=== PATIENT | female | born 1980 | race Caucasian/White ===

== ENCOUNTER → 2016-11-13 | Outpatient (CLI) | payer OTHER ==
[~2016-11-13] MED LIST: CEPH-460 PO; DHA200CA PO; DICY10 PO; ERGO1CAP30 PO; FLUO20CA4 PO; LEVO.1 PO; LEVO100T5 PO; PRENCAP6 PO; PROM25TA5 PO; SYNT88TA PO
[2016-11-13 13:29] LABS: FREE T4 1.2 NG/DL (0.76-1.46)
== END ==
LOC: PLAB 10:42
PROVIDERS: ATTEND Internal Medicine Endocrinology, Diabetes & Metabolism
DX: E06.3 Autoimmune thyroiditis (principal)
CPT/HCPCS: 84439; 84443

== ENCOUNTER 2016-11-17 14:33 | Emergency (ER) | payer OTHER ==
[~2016-11-17] VITALS: Ht 154.9 cm; Wt 92.0 kg
[~2016-11-17 14:33] MED LIST changes: -CEPH-460 PO; -DICY10 PO; -ERGO1CAP30 PO; -LEVO100T5 PO
[2016-11-17 14:39] VITALS: BP 114/86; PULSE 88; RESP 16; TEMP 97.7; O2SAT 99
[2016-11-17 15:01] LABS: BLOOD, URINE LARGE (NEG); GLUCOSE,URINE NEG (NEG); KETONE, URINE NEG (NEG); NITRITE,URINE NEG (NEG)
[2016-11-17 15:07] LABS: METHOD OF COLLECTION CLEAN CATCH; URINE COLOR YELLOW (YELLW/STRAW)
[2016-11-17 15:11] LABS: COMMENT (UR) CULTURE INDICATED; CULTURE IF INDICATED CULTURE INDICATED; WBC, URINE 15-19 /hpf (0-5)
[2016-11-17] MEDS ORDERED: FLUO20CA4 PO (15:18)
[2016-11-17] MEDS ORDERED: LEVO100T5 PO (15:18)
[2016-11-17] MEDS ORDERED: CEPH-460 PO (15:56)
--- NOTE | 2016-11-17 16:04 | PD ---
HPI Chief Complaint: Complaint Time Seen by Provider: 15:19 Travel History International Travel<30 days: No Contact w/Intl Traveler<30days: No Traveled to known affect area: No History of Present Illness HPI This patient complains of dysuria and hematuria. Started this morning. Duration 8 hours. No alleviating factors. Denies fever. Denies vaginal bleeding. PFSH Past Medical History ADHD: Yes Autoimmune Disease: Yes (hoshimoto disease) Anxiety: Yes Depression: Yes Diabetes: No Diminished Hearing: No Gastrointestinal Disorders: Yes (ibs) Psychiatric: Yes (PMDD) Immunizations Current: Yes Thyroid Disease: Yes Tetanus Vaccination: < 5 Years ?: Not LMP: 11/10/2016 : 2 Para: 1 Miscarriage: 1 Ovarian Cysts: Yes Past Surgical History Abdominal Surgery: Yes (ADHESIONS) Appendectomy: Yes Gynecologic Surgery: Yes (LAPAROSCOPIC ADHESIOLYSIS) Tonsillectomy: Yes Social History Alcohol Use: No Tobacco Use: No Substance Use: No Allergies-Medications (Allergen,Severity, Reaction): Coded Allergies: Contrast Media (Verified Allergy, Severe, THROAT SWELLING, 11/17/16) Reported Meds & Prescriptions Reported Meds & Active Scripts Active Keflex (Cephalexin) 500 Mg Cap 500 Mg PO Q8H Reported Levothyroxine (Levothyroxine Sodium) 100 Mcg Tab 100 Mcg PO DAILY Fluoxetine (Fluoxetine HCl) 20 Mg Cap 20 Mg PO DAILY Review of Systems HENT: No: Headaches Cardiovascular: No: Chest Pain or Discomfort Respiratory: No: Cough Physical Exam Narrative GASTROINTESTINAL: Abdomen soft, non-tender, nondistended. Positive bowel sounds. No hepato-splenomegaly, or palpable masses. No guarding. SKIN: Inspection shows no rash or ulcers. Palpation shows no induration or nodules. Back: No CVA tenderness Data Data Last Documented VS Vital Signs Date Time Temp Pulse Resp B/P Pulse Ox O2 Delivery O2 Flow Rate FiO2 11/17/16 14:39 97.7 88 16 114/86 99 Orders Urinalysis - C+S If Indicated (11/17/16 14:43) Ed Urine Pregnancytest Poc (11/17/16 14:43) Urine Culture (11/17/16 14:45) Labs Laboratory Tests Test 11/17/16 14:45 Urine Collection Type CLEAN CATCH Urine Color YELLOW Urine Turbidity CLEAR Urine pH 6.0 Urine Specific [place] 1.023 Urine Protein NEG mg/dL Urine Glucose (UA) NEG mg/dL Urine Ketones NEG mg/dL Urine Occult Blood LARGE Urine Nitrite NEG Urine Bilirubin NEG Urine Leukocyte Esterase TRACE Urine RBC 25-49 /hpf Urine WBC 15-19 /hpf Urine Yeast (Budding) FEW Microscopic Urinalysis Comment CULTURE INDICATED MDM Medical Decision Making Medical Screen Exam Complete: Yes Emergency Medical Condition: Yes Medical Record Reviewed: Yes Differential Diagnosis UTI, pyelonephritis, cystitis Narrative Course I have reviewed the patient's electronic medical record. Urinalysis shows small monitoring of inflammatory cells and red cells It will be cultured but given her symptoms of dysuria and bloody prescribe her some antibiotics pending culture She is breast-feeding so I'm going to avoid certain antibiotics. I wrote some Keflex which should cover the most common pathogen which would be Escherichia coli Diagnosis Primary Impression: Acute cystitis with hematuria Additional Instructions: The patient was advised to follow up with their physician and return if they worsen. Med/Other Pt SpecificInfo: Prescription(s) given Scripts Cephalexin (Keflex)500 Mg [id number] Mg PO Q8H #15 CAP Ref 0 Prov:Jerry Broderick MD 11/17/16 Disposition: DISCHARGE HOME Condition: Stable Jerry Broderick MD Nov 17, 2016 16:04
[2016-11-17 16:15] VITALS: BP 118/78; PULSE 82; RESP 16; O2SAT 99
[2016-12-15] MEDS ORDERED: DICY10 PO (12:14)
[2016-12-25] MEDS ORDERED: ERGO1CAP30 PO (13:12)
== END 2016-11-17 16:20 | disposition home or self-care (01) ==
LOC: PHED 14:33
DX: N30.01 Acute cystitis with hematuria (principal); B96.89 Other specified bacterial agents as the cause of diseases classified elsewhere
CPT/HCPCS: 81001; 84703; 87086; 99283

== ENCOUNTER → 2016-12-18 | Outpatient (CLI) | payer OTHER ==
[~2016-12-18] MED LIST changes: -DHA200CA PO; +DICY10 PO; +ERGO1CAP30 PO; -LEVO.1 PO; +LEVO100T5 PO; -PRENCAP6 PO; -PROM25TA5 PO; -SYNT88TA PO
[2016-12-18 09:49] LABS: AUTOMATED NEUTROPHIL # 3.4 TH/MM3 (1.8-7.7); BASOPHIL # 0.1 TH/MM3 (0-0.2); BASOPHIL % 1.2 % (0.0-2.0); EOSINOPHIL # 0.2 TH/MM3 (0-0.4); EOSINOPHIL % 3.7 % (0.0-4.0); HEMATOCRIT 42.8 % (35.0-46.0); HEMO FLAGS DIFF FINAL; LYMPH % 31.6 % (9.0-44.0); MEAN CORPUSCULAR HEMOGLOBIN 31.3 PG (27.0-34.0); MEAN CORPUSCULAR HGB CONC 33.6 % (32.0-36.0); MONO % 8.2 % (0.0-8.0); NEUT % 55.3 % (16.0-70.0); PLATELET COUNT 284 TH/MM3 (150-450); RED CELL DISTRIBUTION WIDTH 12.9 % (11.6-17.2); WHITE BLOOD COUNT 6.2 TH/MM3 (4.0-11.0)
[2016-12-18 10:19] LABS: ALT (GPT) 23 U/L (10-53); ANION GAP 8 MEQ/L (5-15); AST (GOT) 15 U/L (15-37); BICARBONATE 25.4 MEQ/L (21.0-32.0); BLOOD UREA NITROGEN 11 MG/DL (7-18); CHLORIDE 106 MEQ/L (98-107); GLOMERULAR FILTRATION RATE 75 ML/MIN (>89); GLUCOSE,FASTING 98 MG/DL (74-99); POTASSIUM 4.1 MEQ/L (3.5-5.1); SODIUM (NA) 139 MEQ/L (136-145)
[2016-12-18 10:21] LABS: ALKALINE PHOSPHATASE 83 U/L (45-117); HDL CHOLESTEROL 57.3 MG/DL (40.0-60.0); LDL CHOLESTEROL 107 MG/DL (0-99); RHEUMATOID FACTOR TRIGGER LESS THAN 10.0 IU/ML (0.0-14.9); TOTAL BILIRUBIN ADULT 0.4 MG/DL (0.2-1.0)
[2016-12-18 11:55] LABS: HEPATITIS B SURFACE ANTIBODY GREATER THAN 150 mIU/mL
[2016-12-18 14:08] LABS: HEMOGLOBIN A1a 0.9 %; HEMOGLOBIN A1b 0.7 %; HEMOGLOBIN Ao 87.1 %; HEMOGLOBIN F 0.8 %; HEMOGLOBIN LA1C 1.8 %; HEMOGLOBIN P3 3.2 %
[2016-12-20 16:01] LABS: ANA SCREEN NEG (NEG)
== END ==
LOC: CLAB 09:16
PROVIDERS: ATTEND Family Medicine
DX: E55.9 Vitamin D deficiency, unspecified (principal); E28.2 Polycystic ovarian syndrome; F41.9 Anxiety disorder, unspecified; M25.50 Pain in unspecified joint; Z11.59 Encounter for screening for other viral diseases
CPT/HCPCS: 36415; 80053; 80061; 82306; 83036; 85025; 86038; 86200; 86317; 86430; 86787

== ENCOUNTER → 2017-02-12 | Outpatient (CLI) | payer OTHER ==
[2017-02-12 13:44] LABS: FREE T4 1.36 NG/DL (0.76-1.46)
== END ==
LOC: PLAB 10:33
PROVIDERS: ATTEND Internal Medicine Endocrinology, Diabetes & Metabolism
DX: E06.3 Autoimmune thyroiditis (principal)
CPT/HCPCS: 84439; 84443

== ENCOUNTER → 2017-02-19 | Outpatient (CLI) | payer OTHER | LOC: PLAB 11:14 | PROVIDERS: ATTEND Internal Medicine Endocrinology, Diabetes & Metabolism | DX: E06.3 Autoimmune thyroiditis (principal) | CPT/HCPCS: 84436 ==

== ENCOUNTER → 2017-04-02 | Outpatient (CLI) | payer OTHER ==
[2017-04-02 15:59] LABS: FREE T4 1.12 NG/DL (0.76-1.46)
== END ==
LOC: PLAB 13:40
PROVIDERS: ATTEND Internal Medicine Endocrinology, Diabetes & Metabolism
DX: E04.1 Nontoxic single thyroid nodule (principal)
CPT/HCPCS: 84439; 84443

== ENCOUNTER → 2017-05-29 | Outpatient (CLI) | payer OTHER ==
[~2017-05-29] MED LIST changes: +FLUO1TAB3 PO; -FLUO20CA4 PO
[2017-05-29 13:15] LABS: HEMATOCRIT 37.1 % (35.0-46.0); MEAN CELL VOLUME 91.8 FL (80.0-100.0); MEAN CORPUSCULAR HEMOGLOBIN 31.8 PG (27.0-34.0); MEAN CORPUSCULAR HGB CONC 34.7 % (32.0-36.0); PLATELET COUNT 247 TH/MM3 (150-450); RED BLOOD COUNT 4.04 MIL/MM3 (4.00-5.30); RED CELL DISTRIBUTION WIDTH 12.9 % (11.6-17.2); REVIEW FLAG FINAL; WHITE BLOOD COUNT 10.2 TH/MM3 (4.0-11.0)
[2017-05-29 13:48] LABS: RUBELLA IGG ANTIBODY 264.2 IU/mL (10.0-500.0); RUBELLA STATUS IMMUNE (IMMUNE)
[2017-06-04 16:11] LABS: FREE T4 1.16 NG/DL (0.76-1.46)
== END ==
LOC: PLAB 10:01
PROVIDERS: ATTEND Internal Medicine Endocrinology, Diabetes & Metabolism
DX: Z34.92 Encounter for supervision of normal pregnancy, unspecified, second trimester (principal)
CPT/HCPCS: 84439; 84443; 85027; 86592; 86703; 86762; 86850; 86900; 86901; 87086; 87340

== ENCOUNTER 2017-06-27 18:21 | Emergency (ER) | payer OTHER ==
[~2017-06-27] VITALS: Ht 154.9 cm; Wt 95.7 kg
[~2017-06-27 18:21] MED LIST changes: -ERGO1CAP30 PO; +VITA500012 PO
[2017-06-27 18:45] VITALS: PULSE 101
[2017-06-27 18:50] VITALS: PULSE 94
[2017-06-27 18:51] VITALS: BP 114/64; PULSE 92; RESP 18
[2017-06-27 18:52] VITALS: TEMP 98.7
--- NOTE | 2017-06-27 18:56 | PD ---
HPI Chief Complaint right buttocks pain Date Seen: Jun 27, 2017 Time Seen: 18:50 Travel History International Travel<30 Days: No Contact w/Intl Traveler<30Days: No Known Affected Area: No History of Present Illness HPI 37 yo for right buttock pain for 24 hours Weeks Gestation: 24 Para: 1 : 2 History Past Medical History Narrative Medical Hypothyroid Obstetric History Obstetric History x 1 Past Surgical History Narrative Surgical appy tonsils Family History Family History: Negative Social History Alcohol Use: No Tobacco Use: No Substance Abuse: No Allergies-Medications (Allergen,Severity, Reaction): Coded Allergies: diatrizoate meglumine (Unverified Allergy, Severe, THROAT SWELLING, ) gadobenic acid (Unverified Allergy, Severe, THROAT SWELLING, 06/27/17) gadodiamide (Unverified Allergy, Severe, THROAT SWELLING, 06/27/17) gadoteridol (Unverified Allergy, Severe, THROAT SWELLING, 06/27/17) iodixanol (Unverified Allergy, Severe, THROAT SWELLING, 06/27/17) iohexol (Unverified Allergy, Severe, THROAT SWELLING, 06/27/17) Home Meds Active Scripts Fluoxetine (Fluoxetine) 20 Mg Tab, 20 MG PO DAILY, #30 TAB 2 Refills Prov:Laura Quinones 04/24/17 Ergocalciferol (Ergocalciferol) 50,000 Unit Cap, 46507 UNITS PO Q7D for Nutritional Supplement, #30 CAP 3 Refills Prov:Lizz Alvarez MD 12/25/16 Reported Medications Dicyclomine (Bentyl) 10 Mg Cap, 10 MG PO TID Y for Bowel Management, CAP 0 Refills 12/15/16 Levothyroxine (Levothyroxine) 100 Mcg Tab, 100 MCG PO DAILY for Thyroid, #30 TAB 0 Refills 11/17/16 Review of Systems Except as stated in HPI: all other systems reviewed are Neg Physical Exam Narrative GENERAL: Well-nourished, well-developed patient. SKIN: Warm and dry. NECK: Supple, trachea midline. No JVD. CARDIOVASCULAR: Regular rate and rhythm without murmurs, gallops, or rubs. RESPIRATORY: Breath sounds equal bilaterally. No accessory muscle use. BREASTS: Bilateral exam showed no masses , no retractions, no nipple discharge. ABDOMEN/GI: Abdomen soft, non-tender, bowel sounds present, no rebound, no guarding Gravid to [-] weeks size Fundal Height: [-] GENITOURINARY: External Genitalia: intact and normal in appearance BUS glands: [-] Cervix: [-] Dilatation: deferred Effacement: [-] Station: [-] Presentation: [-] Membranes: [intact Uterine Contractions: [-] FHT's: Category: 1 Baseline: [-] Reactive: [-] Variability: [-] Decels: [-] EXTREMITIES: No cyanosis or edema. BACK: Nontender without obvious deformity. No CVA tenderness. NEUROLOGICAL: Awake and alert. Motor and sensory grossly within normal limits. Five out of 5 muscle strength in all muscle groups. Normal speech. Data Data Vital Signs Reviewed: Yes Orders Orders Vital Signs (Adult) .ON ADMISSION (06/27/17 18:48) ^ Labor Status (06/27/17 18:48) Urinalysis - C+S If Indicated (06/27/17 18:48) Diet Regular Basic (06/27/17 Dinner) MDM Interpretation(s) right buttock pain Plan DC home UA negative Diagnosis Diagnosis: Primary Impression: Buttock pain Condition: Rudy Pina MD Jun 27, 2017 18:56
[2017-06-27 19:15] LABS: BLOOD, URINE NEG (NEG); COMMENT (UR) CULT NOT INDICATED; CULTURE IF INDICATED CULT NOT INDICATED; GLUCOSE,URINE TRACE mg/dL (NEG); KETONE, URINE NEG (NEG); MUCUS URINE FEW /lpf (OCC); NITRITE,URINE NEG (NEG); SQUAMOUS EPITHELIAL CELL URINE <1 /hpf (0-5); URINE COLOR YELLOW (YELLW/STRAW)
--- NOTE | 2017-06-27 20:19 | HHI.DCPOC ---
Discharge Care Plan Diagnosis: (1) Spontaneous vaginal delivery Report Symptoms to Your Doctor -Temperature above 100.5 degrees -Redness, of incision or excessive or foul smelling drainage -Unusual pain or calf pain -Increased vaginal bleeding -Painful or difficulty urinating -Feelings of extreme sadness or anxiety after 2 weeks Goals to Promote Your Health * To prevent worsening of your condition and complications * To maintain your health at the optimal level Directions to Meet Your Goals Take your medications as prescribed Follow your dietary instruction Follow activity as directed Ensure plenty of rest for recovery Drink fluids for hydration Keep your appointments as scheduled Take your immunizations and boosters as scheduled If your symptoms worsen call your PCP, if no PCP go to Urgent Care Center or Emergency Room Smoking is Dangerous to Your Health. Avoid second hand smoke Call the 24-hour crisis hotline for domestic abuse at Rudy Haney MD Jun 27, 2017 20:19
== END 2017-06-27 20:50 | disposition home or self-care (01) ==
LOC: HOBED 18:21
DX: O26.892 Other specified pregnancy related conditions, second trimester (principal); M54.9 Dorsalgia, unspecified; O99.282 Endocrine, nutritional and metabolic diseases complicating pregnancy, second trimester; E03.9 Hypothyroidism, unspecified; Z3A.24 24 weeks gestation of pregnancy; Z79.899 Other long term (current) drug therapy; Z88.8 Allergy status to other drugs, medicaments and biological substances
CPT/HCPCS: 81001; 99283

== ENCOUNTER → 2017-07-30 | Outpatient (CLI) | payer OTHER ==
[2017-07-30 14:49] LABS: HEMATOCRIT 36.9 % (35.0-46.0); REVIEW FLAG FINAL
== END ==
LOC: CLAB 13:32
PROVIDERS: ATTEND Obstetrics & Gynecology
DX: Z34.82 Encounter for supervision of other normal pregnancy, second trimester (principal)
CPT/HCPCS: 36415; 82951; 85014; 85018; 86703

== ENCOUNTER → 2017-08-24 | Outpatient (CLI) | payer OTHER ==
[2017-08-24 12:24] LABS: FREE T4 1.14 NG/DL (0.76-1.46)
== END ==
LOC: PLAB 09:42
PROVIDERS: ATTEND Internal Medicine Endocrinology, Diabetes & Metabolism
DX: E06.3 Autoimmune thyroiditis (principal)
CPT/HCPCS: 36415; 84439; 84443

== ENCOUNTER 2017-09-11 20:39 | Emergency (ER) | payer BC, OTHER ==
[~2017-09-11 20:39] MED LIST changes: -LEVO100T5 PO; +LEVO137T2 PO
[2017-09-11] MEDS ORDERED: LACTATED RINGER'S 1,000 ML BAG IV ONE (21:30)
--- NOTE | 2017-09-11 22:03 | PD ---
HPI Chief Complaint Contractions Date Seen: Sep 11, 2017 Time Seen: 21:58 Travel History International Travel<30 Days: No Contact w/Intl Traveler<30Days: No Known Affected Area: No History of Present Illness HPI 37-year-old who is at 35 weeks 1 day comes in complaining of contractions that started at 6 PM today. They have not worsened but they have been persistent and she has a history of a 36 week vaginal delivery 2 years ago. Denies vaginal bleeding, antepartum complications, the patient's been having good movement. Patient has appointment to see her fermenter tomorrow morning Weeks Gestation: 35 Para: 1 : 3 History Past Medical History Narrative Medical Barry's with subsequent hypothyroidism Obstetric History Obstetric History Spontaneous vaginal delivery 2 years ago, 6 lbs. 10 oz. Past Surgical History Narrative Surgical Appendectomy Tonsillectomy Family History Family History: Negative Social History Alcohol Use: No Tobacco Use: No Substance Abuse: No Allergies-Medications (Allergen,Severity, Reaction): Coded Allergies: diatrizoate meglumine (Verified Allergy, Severe, THROAT SWELLING, 09/10/17) gadobenic acid (Verified Allergy, Severe, THROAT SWELLING, 09/10/17) gadodiamide (Verified Allergy, Severe, THROAT SWELLING, 09/10/17) gadoteridol (Verified Allergy, Severe, THROAT SWELLING, 09/10/17) iodixanol (Verified Allergy, Severe, THROAT SWELLING, 09/10/17) iohexol (Verified Allergy, Severe, THROAT SWELLING, 09/10/17) Home Meds Active Scripts Fluoxetine (Fluoxetine) 20 Mg Tab, 20 MG PO DAILY, #90 TAB 2 Refills Prov:Yuki Carcamo 09/10/17 Ergocalciferol (Ergocalciferol) 50,000 Unit Cap, 21908 UNITS PO Q7D for Nutritional Supplement, #30 CAP 3 Refills Prov:Lizz Alvarez MD 12/25/16 Reported Medications Levothyroxine (Levothyroxine) 137 Mcg Tab, 137 MCG PO DAILY for Thyroid, #30 TAB 0 Refills 09/10/17 Dicyclomine (Bentyl) 10 Mg Cap, 10 MG PO TID Y for Bowel Management, CAP 0 Refills 12/15/16 Discontinued Reported Medications Levothyroxine (Levothyroxine) 100 Mcg Tab, 100 MCG PO DAILY for Thyroid, #30 TAB 0 Refills 11/17/16 Discontinued Scripts Fluoxetine (Fluoxetine) 20 Mg Tab, 20 MG PO DAILY, #30 TAB 0 Refills Prov:Yuki Carcamo 08/15/17 Review of Systems Except as stated in HPI: all other systems reviewed are Neg Physical Exam Narrative GENERAL: Well-nourished, well-developed patient. SKIN: Warm and dry. HEAD: Normocephalic and atraumatic. EYES: No scleral icterus. No injection or drainage. ENT: No nasal drainage noted. Mucous membranes pink. Airway patent. NECK: Supple, trachea midline. No JVD. CARDIOVASCULAR: Regular rate and rhythm without murmurs, gallops, or rubs. RESPIRATORY: Breath sounds equal bilaterally. No accessory muscle use. ABDOMEN/GI: Abdomen soft, non-tender, bowel sounds present, no rebound, no guarding Gravid to [-39] weeks size Fundal Height: [-] GENITOURINARY: External Genitalia: intact and normal in appearance BUS glands: [Normal-] Cervix: [-] Posterior Dilatation: [-] Closed Effacement: [-] Long Station: [-] High and ballotable Presentation: [-] Vertex Membranes: [intact or ruptured] intact Uterine Contractions: [-] Irregular every 5-12 minutes FHT's: Category: [-] 1 Baseline: [-] 140 Reactive: [-] Moderate Variability: [-] Moderate Decels: [-] Absent EXTREMITIES: No cyanosis or edema. BACK: Nontender without obvious deformity. No CVA tenderness. NEUROLOGICAL: Awake and alert. Motor and sensory grossly within normal limits. Five out of 5 muscle strength in all muscle groups. Normal speech. Data Data Vital Signs Reviewed: Yes [facility] Medical Record Reviewed: Yes Plan 37-year-old who is at 35 weeks 1 day with contractions and no cervical change after observation for 2 hours and IV fluids, no pain with contractions Patient is a nurse in the NICU and recognizes the necessity to return to the hospital for any changes in her contraction pattern or worsening Follow-up with appointment tomorrow with OB provider Diagnosis Diagnosis: Primary Impression: 35 weeks gestation of Additional Impressions: Hypothyroidism uterine contractions in third trimester, antepartum Disposition: 01 DISCHARGE HOME Radha Ruby MD Sep 11, 2017 22:02
== END 2017-09-11 22:20 | disposition home or self-care (01) ==
LOC: HOBED 20:39
DX: O47.03 False labor before 37 completed weeks of gestation, third trimester (principal); O99.283 Endocrine, nutritional and metabolic diseases complicating pregnancy, third trimester; E06.3 Autoimmune thyroiditis; Z3A.35 35 weeks gestation of pregnancy
CPT/HCPCS: 96360; 99284; J7120

== ENCOUNTER 2017-09-30 07:40 | Emergency (ER) | payer BC ==
--- NOTE | 2017-09-30 08:11 | PD ---
HPI Chief Complaint Contractions Date Seen: Sep 30, 2017 Travel History International Travel<30 Days: No Contact w/Intl Traveler<30Days: No Known Affected Area: No History of Present Illness HPI 37-year-old 3 para 1 AB 1 with an NILS of October 16 who presents today for contractions. She states that these were irregular last night and more regular today prompting her visit. She denies any bleeding or leakage of fluid. History Past Medical History Narrative Medical Hypothyroid Mild depression Obstetric History Obstetric History One prior term vaginal delivery Past Surgical History Narrative Surgical Exploratory laparoscopy for primary infertility Tonsillectomy Social History Alcohol Use: No Tobacco Use: No Substance Abuse: No Allergies-Medications (Allergen,Severity, Reaction): Coded Allergies: diatrizoate meglumine (Verified Allergy, Severe, THROAT SWELLING, 09/10/17) gadobenic acid (Verified Allergy, Severe, THROAT SWELLING, 09/10/17) gadodiamide (Verified Allergy, Severe, THROAT SWELLING, 09/10/17) gadoteridol (Verified Allergy, Severe, THROAT SWELLING, 09/10/17) iodixanol (Verified Allergy, Severe, THROAT SWELLING, 09/10/17) iohexol (Verified Allergy, Severe, THROAT SWELLING, 09/10/17) Home Meds Active Scripts Fluoxetine (Fluoxetine) 20 Mg Tab, 20 MG PO DAILY, #90 TAB 2 Refills Prov:Yuki Carcamo 09/10/17 Ergocalciferol (Ergocalciferol) 50,000 Unit Cap, 85278 UNITS PO Q7D for Nutritional Supplement, #30 CAP 3 Refills Prov:Lizz Alvarez MD 12/25/16 Reported Medications Levothyroxine (Levothyroxine) 137 Mcg Tab, 137 MCG PO DAILY for Thyroid, #30 TAB 0 Refills 09/10/17 Dicyclomine (Bentyl) 10 Mg Cap, 10 MG PO TID Y for Bowel Management, CAP 0 Refills 12/15/16 Review of Systems Except as stated in HPI: all other systems reviewed are Neg Physical Exam Narrative GENERAL: Well-nourished, well-developed patient. SKIN: Warm and dry. HEAD: Normocephalic and atraumatic. EYES: No scleral icterus. No injection or drainage. ENT: No nasal drainage noted. Mucous membranes pink. Airway patent. NECK: Supple, trachea midline. No JVD. CARDIOVASCULAR: Regular rate and rhythm without murmurs, gallops, or rubs. RESPIRATORY: Breath sounds equal bilaterally. No accessory muscle use. ABDOMEN/GI: Abdomen soft, non-tender, bowel sounds present, no rebound, no guarding Gravid to [-] weeks size Fundal Height: [-] GENITOURINARY: External Genitalia: intact and normal in appearance BUS glands: [-] Cervix: [-] Dilatation: [Fingertip-] Effacement: [-50] Station: [-Ballotable] Presentation: [-] Membranes: [intact] Uterine Contractions: [Every 3-4 mild-] FHT's: Category: [1-] Baseline: [-] Reactive: [-Yes] Variability: [-] Decels: [-] EXTREMITIES: No cyanosis or edema. BACK: Nontender without obvious deformity. No CVA tenderness. NEUROLOGICAL: Awake and alert. Motor and sensory grossly within normal limits. Five out of 5 muscle strength in all muscle groups. Normal speech. MDM Medical Record Reviewed: Yes Narrative Course / MDM Assessment: 37 week 5 day gestation with contractions, possible latent labor Plan: Reevaluate cervical exam in 1 hour. Addendum: Cervical recheck demonstrated no change. She reports her contractions are less vigorous. Diagnosis Diagnosis: Primary Impression: 37 weeks gestation of Additional Impression: Irregular uterine contractions Disposition: 01 DISCHARGE HOME Condition: Good Lenny Branch MD Sep 30, 2017 08:11
== END 2017-09-30 09:41 | disposition home or self-care (01) ==
LOC: HOBED 07:40
DX: O47.1 False labor at or after 37 completed weeks of gestation (principal); O99.283 Endocrine, nutritional and metabolic diseases complicating pregnancy, third trimester; E03.9 Hypothyroidism, unspecified; O99.343 Other mental disorders complicating pregnancy, third trimester; F32.9 Major depressive disorder, single episode, unspecified; Z3A.37 37 weeks gestation of pregnancy; Z79.899 Other long term (current) drug therapy
CPT/HCPCS: 59025

== ENCOUNTER 2017-10-03 08:14 | Emergency (ER) | payer BC ==
[~2017-10-03] VITALS: Ht 154.9 cm; Wt 98.4 kg
--- NOTE | 2017-10-03 09:10 | PD ---
HPI Chief Complaint Contractions Travel History International Travel<30 Days: No Contact w/Intl Traveler<30Days: No Known Affected Area: No History of Present Illness HPI 37-year-old 011, IUP at 38.2 care complicated by asthma, Barry's thyroiditis, anxiety, depression, obesity The patient presents complaining of continued intermittent contractions since she was 34 weeks. She reports that these contractions worsened about midnight with lower back cramps that radiated around to the front. She reports that with her 36 week delivery she had PPROM and rapid labor, with ROM at 1:30 AM and delivery at 8 AM. She denies any aggravating or alleviating factors to the contractions and there are no attempted treatments. She reports she was not able to sleep well last night she reports that she was feeling contractions every 4-5 minutes however now that she has come to the OB ED they are irregular. She reports that she had 1 episode of emesis at 4 AM but has no further nausea or vomiting. She denies any leaking of fluid or vaginal bleeding. She reports good movement. She has no other concerns or complaints today. Weeks Gestation: 38 Para: 1 : 3 History Past Medical History Narrative Medical asthma, Barry's thyroiditis, anxiety, depression, obesity Obstetric History Obstetric History delivery 1 at 36 weeks SAB 1 Past Surgical History Narrative Surgical Appendectomy with lysis of its adhesions, HSG, tonsillectomy Family History Narrative Family History Familial tremors, RA, renal cancer, HTN, CAD, [place], TIA Social History Alcohol Use: No Tobacco Use: No Substance Abuse: No Allergies-Medications (Allergen,Severity, Reaction): Coded Allergies: diatrizoate meglumine (Verified Allergy, Severe, THROAT SWELLING, 09/10/17) gadobenic acid (Verified Allergy, Severe, THROAT SWELLING, 09/10/17) gadodiamide (Verified Allergy, Severe, THROAT SWELLING, 09/10/17) gadoteridol (Verified Allergy, Severe, THROAT SWELLING, 09/10/17) iodixanol (Verified Allergy, Severe, THROAT SWELLING, 09/10/17) iohexol (Verified Allergy, Severe, THROAT SWELLING, 09/10/17) Home Meds Active Scripts Fluoxetine (Fluoxetine) 20 Mg Tab, 20 MG PO DAILY, #90 TAB 2 Refills Prov:Yuki Carcamo 09/10/17 Reported Medications Levothyroxine (Levothyroxine) 137 Mcg Tab, 137 MCG PO DAILY for Thyroid, #30 TAB 0 Refills 09/10/17 Discontinued Reported Medications Dicyclomine (Bentyl) 10 Mg Cap, 10 MG PO TID Y for Bowel Management, CAP 0 Refills 12/15/16 Discontinued Scripts Ergocalciferol (Ergocalciferol) 50,000 Unit Cap, 25408 UNITS PO Q7D for Nutritional Supplement, #30 CAP 3 Refills Prov:Lizz Alvarez MD 12/25/16 Review of Systems Except as stated in HPI: all other systems reviewed are Neg Physical Exam Narrative GENERAL: Well-nourished, well-developed patient. SKIN: Warm and dry. HEAD: Normocephalic and atraumatic. EYES: No scleral icterus. No injection or drainage. ENT: No nasal drainage noted. Mucous membranes pink. Airway patent. NECK: Supple, trachea midline. No JVD. CARDIOVASCULAR: Regular rate and rhythm without murmurs, gallops, or rubs. RESPIRATORY: Breath sounds equal bilaterally. No accessory muscle use. BREASTS: Deferred ABDOMEN/GI: Abdomen soft, non-tender, bowel sounds present, no rebound, no guarding Gravid GENITOURINARY: External Genitalia: intact and normal in appearance. Physiologic discharge. No cervical or vaginal masses noted. SVE 09/20/high/posterior Uterine Contractions: Ir FHT's: heart tones in the 120s with moderate long-term viability, good accelerations, no decelerations noted. This is a category 1 heart rate tracing and reactive NST EXTREMITIES: No cyanosis or edema. BACK: Nontender without obvious deformity. NEUROLOGICAL: Awake and alert. Motor and sensory grossly within normal limits. Normal speech. Musculoskeletal: Grossly normal range of motion, gait, muscle strength Psychiatric: Grossly normal memory and affect MDM Plan Assessment/plan: 1. IUP at 38.2 2. No evidence of active labor: Signs and symptoms of labor were discussed with the patient. SVE 09/20/high. Strict labor precautions given. Strict vaginal bleeding/PROM precautions given 3. Obesity 4. Asthma with no issues today 5. Anxiety 6. Depression 7. Barry's thyroiditis 8. well-being: Reassuring testing with reactive NST and category 1 heart rate tracing. kick counts daily. FHR reassuring and appropriate for gestational age. 9. Follow-up with Dr. Haney as scheduled or sooner if needed Diagnosis Diagnosis: Primary Impression: 38 weeks gestation of Additional Impression: False labor after 37 weeks of gestation without delivery Mariela Daly MD Oct 03, 2017 09:09
== END 2017-10-03 09:24 | disposition home or self-care (01) ==
LOC: HOBED 08:14
DX: O47.1 False labor at or after 37 completed weeks of gestation (principal); O99.213 Obesity complicating pregnancy, third trimester; O99.283 Endocrine, nutritional and metabolic diseases complicating pregnancy, third trimester; E06.3 Autoimmune thyroiditis; Z3A.38 38 weeks gestation of pregnancy
CPT/HCPCS: 99283

== ENCOUNTER 2017-10-16 10:19 | Inpatient (IN) | payer BC ==
[2017-10-16] VITALS (21 sets, daily range): BP systolic 86–132; BP diastolic 56–92; PULSE 68–155; RESP 16–20; TEMP 97.9–98.2; O2SAT 97–99
[~2017-10-16 10:19] MED LIST changes: -DICY10 PO; -VITA500012 PO
[2017-10-16] MEDS ORDERED: LACTATED RINGER'S 1000 ML INJ 1,000 ML IV SCH (11:16)
[2017-10-16] MEDS ORDERED: LACTATED RINGER'S 1000 ML INJ 1,000 ML IV PRN (11:16)
[2017-10-16] MEDS ORDERED: MINERAL OIL 10 ML VIAL TOPICAL PRN (11:30)
[2017-10-16] MEDS ORDERED: SODIUM CHLORID 0.9% 500 ML INJ 500 ML IV PRN (11:30)
[2017-10-16] MEDS ORDERED: LIDOCAINE HCL 1% 50 ML VIAL I-DERMAL PRN (11:30)
[2017-10-16] MEDS ORDERED: LIDOCAINE HCL 1% 50 ML VIAL INFIL PRN (11:30)
[2017-10-16] MEDS ORDERED: OXYTOCIN 30 UNITS-500ML PREMIX 500 ML IV PRN (11:30)
[2017-10-16] MEDS ORDERED: CITRIC ACID-SODIUM CITRATE LIQ 30 ML UDC PO SCH (11:30)
[2017-10-16] MEDS ORDERED: SODIUM CHLOR 0.9% 1000 ML INJ 1,000 ML IV PRN (11:36)
[2017-10-16 12:00] LABS: AUTOMATED NEUTROPHIL # 7.5 TH/MM3 (1.8-7.7); BASOPHIL # 0.1 TH/MM3 (0-0.2); BASOPHIL % 0.7 % (0.0-2.0); EOSINOPHIL # 0.1 TH/MM3 (0-0.4); EOSINOPHIL % 1.2 % (0.0-4.0); HEMATOCRIT 41.2 % (35.0-46.0); HEMOGLOBIN 14.1 GM/DL (11.6-15.3); LYMPH % 20.5 % (9.0-44.0); LYMPHOCYTE # 2.2 TH/MM3 (1.0-4.8); MEAN CELL VOLUME 89.7 FL (80.0-100.0); MEAN CORPUSCULAR HEMOGLOBIN 30.7 PG (27.0-34.0); MEAN CORPUSCULAR HGB CONC 34.2 % (32.0-36.0); MEAN PLATELET VOLUME 9.8 FL (7.0-11.0); MONO % 8.2 % (0.0-8.0); MONOCYTE # 0.9 TH/MM3 (0-0.9); NEUT % 69.4 % (16.0-70.0); PLATELET COUNT 234 TH/MM3 (150-450); RED BLOOD COUNT 4.59 MIL/MM3 (4.00-5.30); RED CELL DISTRIBUTION WIDTH 13.9 % (11.6-17.2); WHITE BLOOD COUNT 10.8 TH/MM3 (4.0-11.0)
[2017-10-16] MEDS ORDERED: LACTATED RINGER'S 1000 ML INJ 1,000 ML IV ONE (12:00)
[2017-10-16] MEDS ORDERED: OXYTOCIN 10 UNIT/ML AMP IV ONE (12:00)
[2017-10-16] MEDS ORDERED: ONDANSETRON HCL 4 MG/2 ML VIAL IV ONE (12:00)
[2017-10-16] MEDS ORDERED: PROPOFOL 200 MG/20 ML AMP IV ONE (12:00)
[2017-10-16] MEDS ORDERED: ceFAZolin INJ 1,000 MG VIAL IV ONE (12:00)
[2017-10-16] MEDS ORDERED: LIDOCAINE 2%/EPINEPHrine PF 1:200,000 20ML SDV OTHER ONE (12:00)
[2017-10-16] MEDS ORDERED: OXYTOCIN 30 UNITS-500ML PREMIX 500 ML IV ONE ×2 (12:00→18:30)
[2017-10-16] MEDS ORDERED: KETOROLAC TROMETHAMINE 30 MG/ML (IVP) VIAL IV PUSH ONE (12:00)
[2017-10-16 12:06] LABS: BILIRUBIN, URINE NEG (NEG); BLOOD, URINE NEG (NEG); GLUCOSE,URINE NEG (NEG); KETONE, URINE NEG (NEG); NITRITE,URINE NEG (NEG); PH, URINE 6.5 (5.0-8.5); SQUAMOUS EPITHELIAL CELL URINE 4 /hpf (0-5); URINE COLOR YELLOW (YELLW/STRAW); URINE LEUKOCYTE ESTERASE NEG (NEG)
[2017-10-16] MEDS ORDERED: fentaNYL 2MCG-BUPIV 0.125% INJ 100 ML ONE (15:40)
[2017-10-16] MEDS ORDERED: LIDOCAINE HCL 1% 20 ML VIAL I-DERMAL PRN (16:45)
[2017-10-16] MEDS ORDERED: fentaNYL 2MCG-BUPIV 0.125% 100 ML EPIDURAL SCH (17:00)
[2017-10-16] MEDS ORDERED: ePHEDrine/NS 25 MG/5 ML SYRINGE IV PUSH PRN (17:00)
[2017-10-16] MEDS ORDERED: NO SYSTEM NARCOTICS PRN (17:00)
[2017-10-16] MEDS ORDERED: DO NOT ADMINISTER ANTICOAGULANTS PRN (17:00)
[2017-10-16] MEDS ORDERED: LIDOCAINE HCL 1% 20 ML VIAL INFIL PRN (17:00)
[2017-10-16] MEDS ORDERED: LIDOCAINE HCL 1.5% PF SOLN 20 ML AMP ONE (17:15)
[2017-10-16] MEDS ORDERED: EPIDURAL-DIPHENHYDRAMINE HCL 50 MG CAP PO PRN (17:30)
[2017-10-16] MEDS ORDERED: EPIDURAL-DIPHENHYDRAMINE HCL 50 MG/ML VIAL IV PUSH PRN (17:30)
[2017-10-16] MEDS ORDERED: EPIDURAL-DO NOT ADMINISTER ANTICOAGULANTS PRN (17:30)
[2017-10-16] MEDS ORDERED: EPIDURAL-NALOXONE HCL 0.4 MG/ML AMP IV PUSH PRN (17:30)
[2017-10-16] MEDS ORDERED: EPIDURAL-NO SYSTEMIC NARCOTICS PRN (17:30)
[2017-10-16] MEDS ORDERED: ACETAMINOPHEN 1000 MG/100 ML 100 ML IV ONE (17:31)
[2017-10-16] MEDS ORDERED: fentaNYL CITRATE 250 MCG/5 ML AMP ONE (17:31)
[2017-10-16] MEDS ORDERED: MORPHINE SULFATE PF 5 MG/10 ML VIAL ONE (17:31)
[2017-10-16] MEDS ORDERED: MIDAZOLAM HCL 2 MG/2 ML VIAL ONE (17:51)
--- NOTE | 2017-10-16 18:25 | PD.OB.DELI ---
Procedure Note Section Procedure Pre Op Diagnosis: (1) Arrest of descent, delivered, current hospitalization (2) Delivered by section Post Op Diagnosis: (1) Arrest of descent, delivered, current hospitalization (2) Delivered by section Performed by Rudy Haney Procedure: Primary Low Transverse Sec Indication for delivery: Other (arrest of descent) Informed consent obtained: For anesthesia, For procedure Confirmed correct: Patient, Procedure, Time-out taken Anesthesia: Epidural Monitoring during procedure: Blood pressure monitoring Urinary catheter: Inserted using sterile technique, To dependent drainage Sterile preparation: Duraprep Position: Supine with wedge to left side Operative Features Skin Incision: Pfannenstiel Uterine Incision: Low transverse w/knife / blunt ext Membranes Ruptured: Previously Presentation: Occiput anterior Delivery date: Oct 16, 2017 Delivery time: 17:47 Delivery of infant: Uneventful : Male One Minute : 9 Five Minute : 9 Weight: 8 # 15 oz Status of infant: Viable Placenta delivered: Intact Medications: Antibiotics Estimated blood loss: 700 Procedure tolerated: Well Maternal Condition: Stable Condition: Stable Rudy Haney MD Oct 16, 2017 18:25
[2017-10-16] MEDS ORDERED: IBUPROFEN 600 MG TAB PO PRN (18:30)
[2017-10-16] MEDS ORDERED: SIMETHICONE 80 MG CHEWABLE TAB PO PRN (18:30)
[2017-10-16] MEDS ORDERED: SODIUM CHLORIDE 0.9% FLUSH 10 ML FLUSH IV FLUSH PRN (18:30)
--- NOTE | 2017-10-16 18:36 | HHI.HP ---
HPI Chief Complaint induction 40 weeks Date Seen: Oct 16, 2017 Time Seen: 11:00 Travel History International Travel<30 Days: No Contact w/Intl Traveler<30Days: No Known Affected Area: No History of Present Illness HPI 37 yo comes in for pitocin induction at 40 weeks. Previous at 36 weeks and 6# 10 oz. She has EFW 8.5 # Weeks Gestation: 40 Para: 1 : 3 History Past Medical History Narrative Medical asthma, hasimotos, anxiety, depression Obstetric History Obstetric History x1 Past Surgical History Narrative Surgical appy, HSG Family History Family History: Negative Social History Alcohol Use: No Tobacco Use: No Substance Abuse: No Allergies-Medications (Allergen,Severity, Reaction): Coded Allergies: diatrizoate meglumine (Verified Allergy, Severe, THROAT SWELLING, 09/10/17) gadobenic acid (Verified Allergy, Severe, THROAT SWELLING, 09/10/17) gadodiamide (Verified Allergy, Severe, THROAT SWELLING, 09/10/17) gadoteridol (Verified Allergy, Severe, THROAT SWELLING, 09/10/17) iodixanol (Verified Allergy, Severe, THROAT SWELLING, 09/10/17) iohexol (Verified Allergy, Severe, THROAT SWELLING, 09/10/17) Home Meds Active Scripts Fluoxetine (Fluoxetine) 20 Mg Tab, 20 MG PO DAILY, #90 TAB 2 Refills Prov:Yuki Carcamo 09/10/17 Reported Medications Levothyroxine (Levothyroxine) 137 Mcg Tab, 137 MCG PO DAILY for Thyroid, #30 TAB 0 Refills 09/10/17 Review of Systems Except as stated in HPI: all other systems reviewed are Neg Physical Exam Vital Signs Date Time Temp Pulse Resp B/P (MAP) Pulse Ox O2 Delivery O2 Flow Rate FiO2 10/16/17 18:23 126/56 (79) 10/16/17 18:23 152 19 97 10/16/17 18:23 98.0 10/16/17 16:51 151 105/64 (78) 10/16/17 14:15 20 10/16/17 14:01 96 131/91 (104) 10/16/17 13:31 20 10/16/17 13:31 100 132/81 (98) 10/16/17 13:15 20 10/16/17 13:01 102 130/86 (101) 10/16/17 12:45 20 10/16/17 12:31 100 121/72 (88) Narrative GENERAL: Well-nourished, well-developed patient. SKIN: Warm and dry. HEAD: Normocephalic and atraumatic. EYES: No scleral icterus. No injection or drainage. ENT: No nasal drainage noted. Mucous membranes pink. Airway patent. NECK: Supple, trachea midline. No JVD. CARDIOVASCULAR: Regular rate and rhythm without murmurs, gallops, or rubs. RESPIRATORY: Breath sounds equal bilaterally. No accessory muscle use. BREASTS: Bilateral exam showed no masses , no retractions, no nipple discharge. ABDOMEN/GI: Abdomen soft, non-tender, bowel sounds present, no rebound, no guarding Gravid to [-] weeks size Fundal Height: [-] GENITOURINARY: External Genitalia: intact and normal in appearance BUS glands: [-] Cervix: [-] Dilatation: 1 Effacement: 70 Station: [-] Presentation: vtx Membranes: intact Uterine Contractions: irregular FHT's: Category: 1 Baseline: [-] Reactive: [-] Variability: [-] Decels: [-] EXTREMITIES: No cyanosis or edema. BACK: Nontender without obvious deformity. No CVA tenderness. NEUROLOGICAL: Awake and alert. Motor and sensory grossly within normal limits. Five out of 5 muscle strength in all muscle groups. Normal speech. Caprini VTE Risk Assessment Caprini VTE Risk Assessment: No/Low Risk (score <= 1) Caprini Risk Assessment Model Point Value = 1 Point Value = 2 Point Value = 3 Point Value = 5 Age 41-60 Minor surgery BMI > 25 kg/m2 Swollen legs Varicose veins or History of unexplained or recurrent spontaneous Oral contraceptives or hormone replacement Sepsis (< 1 month) Serious lung disease, including pneumonia (< 1 month) Abnormal pulmonary function Acute myocardial infarction Congestive heart failure (< 1 month) History of inflammatory bowel disease Medical patient at bed rest Age 61-74 Arthroscopic surgery Major open surgery (> 45 min) Laparoscopic surgery (> 45 min) Malignancy Confined to bed (> 72 hours) Immobilizing plaster cast Central venous access Age >= 75 History of VTE Family history of VTE Factor V Leiden Prothrombin [id number] Lupus anticoagulant Anticardiolipin antibodies Elevated serum homocysteine Heparin-induced thrombocytopenia Other congenital or acquired thrombophilia Stroke (< 1 month) Elective arthroplasty Hip, pelvis, or leg fracture Acute spinal cord injury (< 1 month) Prophylaxis Regimen Total Risk Factor Score Risk Level Prophylaxis Regimen 0-1 Low Early ambulation 2 Moderate Order ONE of the following: *Sequential Compression Device (SCD) *Heparin 5000 units SQ BID 3-4 Higher Order ONE of the following medications: *Heparin 5000 units SQ TID *Enoxaparin/Lovenox 40 mg SQ daily (WT < 150 kg, CrCl > 30 mL/min) *Enoxaparin/Lovenox 30 mg SQ daily (WT < 150 kg, CrCl > 10-29 mL/min) *Enoxaparin/Lovenox 30 mg SQ BID (WT < 150 kg, CrCl > 30 mL/min) AND/OR *Sequential Compression Device (SCD) 5 or more Highest Order ONE of the following medications: *Heparin 5000 units SQ TID (Preferred with Epidurals) *Enoxaparin/Lovenox 40 mg SQ daily (WT < 150 kg, CrCl > 30 mL/min) *Enoxaparin/Lovenox 30 mg SQ daily (WT < 150 kg, CrCl > 10-29 mL/min) *Enoxaparin/Lovenox 30 mg SQ BID (WT < 150 kg, CrCl > 30 mL/min) AND *Sequential Compression Device (SCD) Data Data Vital Signs Reviewed: Yes Orders Orders Admit To Inpatient (10/16/17 ) Code Status (10/16/17 11:16) Vital Signs (Adult) .Per protocol (10/16/17 11:16) Heart (10/16/17 11:16) Amnioinfusion (10/16/17 11:16) Urinary Catheter Management .ONCE (10/16/17 11:16) Lactated Ringer's 1000 Ml Inj (Lr 1000 M (10/16/17 11:16) Lactated Ringer's 1000 Ml Inj (Lr 1000 M (10/16/17 11:16) Sodium Chlorid 0.9% 500 Ml Inj (Ns 500 M (10/16/17 11:30) Sodium Chlor 0.9% 1000 Ml Inj (Ns 1000 M (10/16/17 11:36) Lidocaine 1% Inj (50 Ml) (Xylocaine 1% I (10/16/17 11:30) Citric Acid-Sodium Citrate Liq (Bicitra (10/16/17 11:30) Fentanyl Inj (Fentanyl Inj) (10/16/17 11:30) Fentanyl Inj (Fentanyl Inj) (10/16/17 11:30) Complete Blood Count With Diff (10/16/17 11:16) Hold Clot (10/16/17 11:16) Abo/Rh Blood Type (10/16/17 11:16) Urinalysis - C+S If Indicated (10/16/17 11:16) Drug Screen, Random Urine (10/16/17 11:16) Resp Oxygen Non Rebreathe Mask (10/16/17 ) ^ Epidural / Intrathecal Infus (10/16/17 11:16) Oxytocin 30 Units-500ml Premix (Pitocin (10/16/17 12:00) Lidocaine 1% Inj (50 Ml) (Xylocaine 1% I (10/16/17 11:30) Light Mineral Oil (Muri-Lube Oil) (10/16/17 11:30) Inpatient Certification (10/16/17 ) Specimen To Be Collected PRN (10/16/17 11:16) Specimen To Be Collected PRN (10/16/17 11:16) ^ Non Stress Test (10/16/17 11:17) Response To Medication .Post New Med Administration, Reaction (10/16/17 11:17) ^ Discontinue Medication (10/16/17 11:17) Oxytocin 30 Units-500ml Premix (Pitocin (10/16/17 11:30) Fentanyl 2mcg-Bupiv 0.125% Inj (Fentanyl (10/16/17 15:40) ^ Place On Chart (10/16/17 ) ^ Medication Indications (10/16/17 ) Consent (10/16/17 ) ^ No Systemic Narcotics (10/16/17 ) ^ Call Anesthesiologist (10/16/17 ) ^ Discontinue Epidural Cathete (10/16/17 ) Anticoagulant Alert (10/16/17 ) ^ Epidural Alert (10/16/17 ) Lidocaine 1% Inj (Xylocaine 1% Inj) (10/16/17 16:45) Lidocaine 1% Inj (Xylocaine 1% Inj) (10/16/17 17:00) Misc Nursing Information (10/16/17 17:00) Misc Nursing Information (10/16/17 17:00) Fentanyl Inj (Fentanyl Inj) (10/16/17 17:00) Fentanyl 2mcg-Bupiv 0.125% Inj (Fentanyl (10/16/17 17:00) Ephedrine/Ns 25 Mg/5 Ml Syr (Ephedrine/N (10/16/17 17:00) Lidocaine Pf 1.5% Inj (Xylocaine-Mpf 1.5 (10/16/17 17:15) Fentanyl Inj (Fentanyl Inj) (10/16/17 17:31) Morphine Pf Inj (Duramorph Pf 0.5 Mg/Ml (10/16/17 17:31) Acetaminophen 1000 Mg/100 Ml (Ofirmev 10 (10/16/17 17:31) Midazolam Inj (Versed Inj) (10/16/17 17:51) Vital Signs (Adult) Q4HX24,Q12H (10/16/17 18:25) Activity Bed Rest (10/16/17 18:25) ^ Discontinue (10/17/17 18:25) Remove Dressing (10/17/17 18:25) ^ Rhogam (10/16/17 18:25) Diet Liquid (10/16/17 Dinner) Lactated Ringer's 1000 Ml Inj (Lr 1000 M (10/16/17 23:25) Oxytocin 30 Units-500ml Premix (Pitocin (10/16/17 18:30) Oxytocin 30 Units-500ml Premix (Pitocin (10/17/17 04:30) Sodium Chloride 0.9% Flush (Ns Flush) (10/16/17 21:00) Sodium Chloride 0.9% Flush (Ns Flush) (10/16/17 18:30) Simethicone Chew (Mylicon Chew) (10/16/17 18:30) Ibuprofen (Motrin) (10/16/17 18:30) Ketorolac Inj (Toradol Inj) (10/16/17 18:30) Oxycodone-Acetamin 5-325 Mg (Percocet (10/16/17 18:30) Oxycodone-Acetamin 5-325 Mg (Percocet (10/16/17 18:30) Sbtwjfj-Hajud-Cceldoy Inj (M-M-R Ii Inj) (10/17/17 16:00) Kaug-Rtz-Dzpnjn (Booster) Inj (Boostrix (10/17/17 16:00) Complete Blood Count With Diff (10/17/17 06:00) Remove Urinary Catheter .ONCE (10/17/17 18:25) Group B Strep: Negative Labs Laboratory Tests Test 10/16/17 11:30 White Blood Count 10.8 Red Blood Count 4.59 Hemoglobin 14.1 Hematocrit 41.2 Mean Corpuscular Volume 89.7 Mean Corpuscular Hemoglobin 30.7 Mean Corpuscular Hemoglobin Concent 34.2 Red Cell Distribution Width 13.9 Platelet Count 234 Mean Platelet Volume 9.8 Neutrophils (%) (Auto) 69.4 Lymphocytes (%) (Auto) 20.5 Monocytes (%) (Auto) 8.2 Eosinophils (%) (Auto) 1.2 Basophils (%) (Auto) 0.7 Neutrophils # (Auto) 7.5 Lymphocytes # (Auto) 2.2 Monocytes # (Auto) 0.9 Eosinophils # (Auto) 0.1 Basophils # (Auto) 0.1 CBC Comment DIFF FINAL Differential Comment Urine Color YELLOW Urine Turbidity CLEAR Urine pH 6.5 Urine Specific [place] 1.011 Urine Protein NEG Urine Glucose (UA) NEG Urine Ketones NEG Urine Occult Blood NEG Urine Nitrite NEG Urine Bilirubin NEG Urine Urobilinogen LESS THAN 2.0 Urine Leukocyte Esterase NEG Urine RBC 1 Urine WBC LESS THAN 1 Urine Squamous Epithelial Cells 4 Microscopic Urinalysis Comment CULT NOT INDICATED Urine Opiates Screen NEG Urine Barbiturates Screen NEG Urine Amphetamines Screen NEG Urine Benzodiazepines Screen NEG Urine Cocaine Screen NEG Urine Cannabinoids Screen NEG Assessment/Plan Problem List: (1) 40 weeks gestation of ICD Codes: Z3A.40 - 40 weeks gestation of Assessment and Plan doing well Rudy Haney MD Oct 16, 2017 18:36
--- NOTE | 2017-10-16 19:48 | MP ---
cc: LITO HANEY DATE OF SURGERY 10/16/17 PROCEDURE Primary low transverse transection PREOPERATIVE DIAGNOSIS Arrest of descent POSTOPERATIVE DIAGNOSIS Arrest of descent SURGEON Dr. Ginna Haney ESTIMATED BLOOD LOSS 700 mL ANESTHESIA Epidural by Dr. Garrett COMPLICATIONS None FINDINGS Live male infant, Apgars of 9 and 9, 8 pounds 15 ounces PROCEDURE IN DETAIL After informed consent, the patient was taken to the operating room where she was placed under epidural anesthesia. The patient had been pushing for one hour with little descent at the end and the patient requested a section. I tried to convince the patient to continue pushing, but because of discomfort and anxiety, irritation, the patient requested and demanded a section. The patient was at least two pounds bigger that her previous baby and so decision was made for a section. After the patient was prepped and draped and a time-out was taken, a Pfannenstiel skin incision was carried sharply through the skin and fascia. The fascia was nicked in the midline. The incision was extended laterally using Arreola scissors. The rectus muscles was dissected off the fascia with sharp and blunt dissection. Rectus muscle in the midline. Peritoneum was entered bluntly with the finger. The incision was extended laterally using blunt traction. A low-transverse uterine incision was then made, carried sharply to uterine cavity. Clear fluid was noted. The incision was extended laterally using blunt traction. Hand was placed into the uterus and the head was all way the down to the vagina, had to be pulled back up through the uterus and was delivered using fundal pressure. Once the infant was delivered, we waited 1 minute for cord clamping and the infant was doing very well. Cord was clamped, cut and was handed to pediatrics in attendance. Cord blood was collected. Placenta was delivered manually. The uterus was exteriorized, wiped free from all remaining products of conception. The uterine incision was then closed with running locking stitch of chromic suture. Good hemostasis was achieved. Uterus was placed back in the abdomen, noted to be hemostatic. The fascia was closed with Vicryl suture. Skin was closed with subcuticular stitch. Each layer was noted to be hemostatic prior to closure. The patient tolerated the procedure well. MD MELISSA Mckoy/ /6:48 PM /7:36 PM
[2017-10-16] MEDS: LACTATED RINGER'S 1000 ML INJ 1,000 ML IV SCH (20:58)
[2017-10-16] MEDS: KETOROLAC TROMETHAMINE 60 MG/2 ML (IM) VIAL IM PRN (22:05)
[2017-10-17] MEDS: oxyCODONE/ACETAMINOPHEN 5 MG/325 MG TAB PO PRN ×5 (01:58→20:20)
[2017-10-17 03:45] VITALS: BP 110/61; PULSE 90; RESP 18; TEMP 97.8; O2SAT 97
[2017-10-17] MEDS ORDERED: OXYTOCIN 30 UNITS-500ML PREMIX 500 ML IV PRN (04:30)
[2017-10-17] MEDS: KETOROLAC TROMETHAMINE 60 MG/2 ML (IM) VIAL IM PRN (04:53)
[2017-10-17 06:00] LABS: AUTOMATED NEUTROPHIL # 9.9 TH/MM3 (1.8-7.7); BASOPHIL % 0.2 % (0.0-2.0); EOSINOPHIL % 0.3 % (0.0-4.0); HEMATOCRIT 31.7 % (35.0-46.0); HEMOGLOBIN 10.8 GM/DL (11.6-15.3); LYMPH % 19.5 % (9.0-44.0); LYMPHOCYTE # 2.8 TH/MM3 (1.0-4.8); MEAN CELL VOLUME 90.1 FL (80.0-100.0); MEAN CORPUSCULAR HEMOGLOBIN 30.7 PG (27.0-34.0); MEAN CORPUSCULAR HGB CONC 34.1 % (32.0-36.0); MEAN PLATELET VOLUME 9.6 FL (7.0-11.0); MONO % 11.3 % (0.0-8.0); MONOCYTE # 1.6 TH/MM3 (0-0.9); NEUT % 68.7 % (16.0-70.0); PLATELET COUNT 192 TH/MM3 (150-450); RED BLOOD COUNT 3.52 MIL/MM3 (4.00-5.30); RED CELL DISTRIBUTION WIDTH 13.6 % (11.6-17.2); WHITE BLOOD COUNT 14.4 TH/MM3 (4.0-11.0)
[2017-10-17 08:00] VITALS: BP 121/66; PULSE 95; RESP 18; TEMP 98.4
--- NOTE | 2017-10-17 09:18 | HHI.OB ---
Subjective Post Day: 1 Remarks doing well Objective Vitals/I&O Vital Signs Date Time Temp Pulse Resp B/P (MAP) Pulse Ox O2 Delivery O2 Flow Rate FiO2 10/17/17 03:45 97.8 90 18 110/61 (77) 97 10/16/17 23:40 97.9 68 18 126/79 (95) 99 10/16/17 21:29 107 126/72 (90) 10/16/17 21:29 98.2 18 97 10/16/17 20:22 18 10/16/17 19:25 118 18 115/60 (78) 10/16/17 19:10 112 10/16/17 19:10 119/58 (78) 10/16/17 19:10 18 10/16/17 18:55 122/79 (93) 10/16/17 18:55 99 10/16/17 18:55 98 19 10/16/17 18:40 131/87 (102) 10/16/17 18:40 78 16 99 10/16/17 18:23 126/56 (79) 10/16/17 18:23 152 19 97 10/16/17 18:23 98.0 10/16/17 17:25 155 130/78 (95) 10/16/17 17:22 120 86/64 (71) 10/16/17 17:11 154 121/62 (81) 10/16/17 17:05 148 124/81 (95) 10/16/17 17:01 155 107/67 (80) 10/16/17 16:55 123 113/92 (99) 10/16/17 16:51 151 105/64 (78) 10/16/17 14:15 20 10/16/17 14:01 96 131/91 (104) 10/16/17 13:31 20 10/16/17 13:31 100 132/81 (98) 10/16/17 13:15 20 10/16/17 13:01 102 130/86 (101) 10/16/17 12:45 20 10/16/17 12:31 100 121/72 (88) Intake & Output 10/17/17 10/17/17 06:59 18:59 Intake Total 1495 ml Balance 1495 ml Intake IV Total 1495 ml Objective Remarks GENERAL: Well-nourished, well-developed patient. CARDIOVASCULAR: Regular rate and rhythm without murmurs, gallops, or rubs. RESPIRATORY: Breath sounds equal bilaterally. No accessory muscle use. ABDOMEN/GI: Abdomen soft, non-tender. Fundus: Firm, non-tender at umbilicus. GENITOURINARY: Light to moderate bleeding. EXTREMITIES: No cyanosis or edema, non-tender, without signs of DVT. Medications and IVs Current Medications Medications (Trade) Dose Ordered Sig/Huma Route Start Time Stop Time Status Last Admin Miscellaneous Information No systemic narcotics to be given except... UNSCH PRN .XX 10/16/17 17:00 10/17/17 16:59 Lactated Ringer's 1,000 ml @ 100 mls/hr Q10H IV 10/16/17 23:25 10/17/17 19:24 10/16/17 20:58 Oxytocin 500 ml @ 100 mls/hr UNSCH X1 PRN IV 10/17/17 04:30 10/18/17 04:29 (NS Flush) 2 ml BID IV FLUSH 10/16/17 21:00 (NS Flush) 2 ml UNSCH PRN IV FLUSH 10/16/17 18:30 (Mylicon Chew) 80 mg QID PRN PO 10/16/17 18:30 (Toradol Inj) 30 mg Q6H PRN IM 10/16/17 18:30 10/17/17 18:29 10/17/17 04:53 (Percocet 5-325 Mg) 1 tab Q4H PRN PO 10/16/17 18:30 (Percocet 5-325 Mg) 2 tab Q4H PRN PO 10/16/17 18:30 10/17/17 06:35 (M-M-R Ii Inj) 0.5 ml ONCE ONCE SQ 10/17/17 16:00 10/17/17 16:01 (Boostrix Inj) 0.5 ml ONCE ONCE IM 10/17/17 16:00 10/17/17 16:01 (Motrin) 600 mg Q6H PRN PO 10/17/17 18:30 Miscellaneous Information NO SYSTEMIC NARCOTICS TO BE GIVEN FO... UNSCH PRN .XX 10/16/17 17:30 10/17/17 17:29 (Narcan Inj) 0.4 mg UNSCH PRN IV PUSH 10/16/17 17:30 10/17/17 17:29 (Benadryl Inj) 25 mg Q6H PRN IV PUSH 10/16/17 17:30 10/17/17 17:29 10/17/17 06:39 (Benadryl) 50 mg Q6H PRN PO 10/16/17 17:30 10/17/17 17:29 Miscellaneous Information ALL NURSING DEPARTMENTS UNSCH PRN .XX 10/16/17 17:30 10/17/17 17:29 Assessment/Plan Problem List: (1) 40 weeks gestation of ICD Codes: Z3A.40 - 40 weeks gestation of Assessment and Plan doing well, post CS ambulate today Rudy Haney MD Oct 17, 2017 09:18
[2017-10-17] MEDS: IBUPROFEN 600 MG TAB PO PRN ×2 (12:14→18:51)
[2017-10-17] MEDS: LACTATED RINGER'S 1000 ML INJ 1,000 ML IV SCH (13:11)
[2017-10-17] MEDS ORDERED: DIPHTH/TETANUS/ACEL PERTUSSIS (BOOSTER) 0.5 ML VIAL/PFS IM ONE (16:00)
[2017-10-17] MEDS ORDERED: MEASLES, MUMPS, RUBELLA VACCINE 0.5 ML VIAL SQ ONE (16:00)
[2017-10-17] MEDS: SODIUM CHLORIDE 0.9% FLUSH 10 ML FLUSH IV FLUSH SCH ×2 (16:21→19:22)
[2017-10-17 20:00] VITALS: BP 133/74; PULSE 95; RESP 18; TEMP 97.9
[2017-10-18] MEDS: diphenhydrAMINE HCL 50 MG CAP PO PRN ×3 (00:32→22:37)
[2017-10-18] MEDS: IBUPROFEN 600 MG TAB PO PRN ×4 (00:32→22:37)
[2017-10-18] MEDS: oxyCODONE/ACETAMINOPHEN 5 MG/325 MG TAB PO PRN ×5 (00:32→20:12)
[2017-10-18 08:00] VITALS: BP 115/75; PULSE 106; RESP 18; TEMP 98
[2017-10-18] MEDS: SODIUM CHLORIDE 0.9% FLUSH 10 ML FLUSH IV FLUSH SCH ×2 (08:07→21:03)
--- NOTE | 2017-10-18 08:47 | HHI.OB ---
Subjective Post Day: 2 Remarks doing well Objective Vitals/I&O Vital Signs Date Time Temp Pulse Resp B/P (MAP) Pulse Ox O2 Delivery O2 Flow Rate FiO2 10/17/17 20:00 97.9 95 18 10/17/17 20:00 133/74 (93) Objective Remarks GENERAL: Well-nourished, well-developed patient. ABDOMEN/GI: Abdomen soft, non-tender. Fundus: Firm, non-tender at umbilicus. GENITOURINARY: Light to moderate bleeding. EXTREMITIES: No cyanosis or edema, non-tender, without signs of DVT. Medications and IVs Current Medications Medications (Trade) Dose Ordered Sig/Huma Route Start Time Stop Time Status Last Admin (NS Flush) 2 ml BID IV FLUSH 10/16/17 21:00 (NS Flush) 2 ml UNSCH PRN IV FLUSH 10/16/17 18:30 (Mylicon Chew) 80 mg QID PRN PO 10/16/17 18:30 (Percocet 5-325 Mg) 1 tab Q4H PRN PO 10/16/17 18:30 10/17/17 12:14 (Percocet 5-325 Mg) 2 tab Q4H PRN PO 10/16/17 18:30 10/18/17 04:20 (Motrin) 600 mg Q6H PRN PO 10/17/17 11:45 10/18/17 00:32 (Benadryl) 50 mg Q6H PRN PO 10/17/17 23:00 10/18/17 00:32 (PROzac) 20 mg DAILY PO 10/18/17 09:00 (Synthroid) 112 mcg DAILY@0600 PO 10/18/17 08:00 (Synthroid) 25 mcg DAILY@0600 PO 10/18/17 08:00 Assessment/Plan Problem List: (1) 40 weeks gestation of ICD Codes: Z3A.40 - 40 weeks gestation of Assessment and Plan doing well, post CS ambulate today, dc in am Rudy Haney MD Oct 18, 2017 08:47
[2017-10-18] MEDS: LEVOTHYROXINE SODIUM 112 MCG TAB PO SCH (08:57)
[2017-10-18] MEDS: LEVOTHYROXINE SODIUM 25 MCG TAB PO SCH (08:57)
[2017-10-18] MEDS: FLUoxetine HCL 20 MG CAP PO SCH (08:57)
[2017-10-18 20:00] VITALS: BP 108/57; PULSE 108; TEMP 98.1; O2SAT 95
[2017-10-18] MEDS: DOCUSATE SODIUM 100 MG CAP PO PRN (20:12)
[2017-10-19] MEDS: oxyCODONE/ACETAMINOPHEN 5 MG/325 MG TAB PO PRN ×4 (00:24→14:22)
[2017-10-19] MEDS: IBUPROFEN 600 MG TAB PO PRN ×2 (04:20→10:14)
--- NOTE | 2017-10-19 05:23 | HHI.OB ---
Subjective Post Day: 3 Remarks doing well after CS, Dc home today Objective Vitals/I&O Vital Signs Date Time Temp Pulse Resp B/P (MAP) Pulse Ox O2 Delivery O2 Flow Rate FiO2 10/18/17 20:00 108 95 10/18/17 20:00 98.1 10/18/17 20:00 108/57 (74) 10/18/17 08:00 98.0 106 18 115/75 (88) Objective Remarks GENERAL: Well-nourished, well-developed patient. ABDOMEN/GI: Abdomen soft, non-tender. Fundus: Firm, non-tender at umbilicus. GENITOURINARY: Light to moderate bleeding. EXTREMITIES: No cyanosis or edema, non-tender, without signs of DVT. Medications and IVs Current Medications Medications (Trade) Dose Ordered Sig/Huma Route Start Time Stop Time Status Last Admin (NS Flush) 2 ml BID IV FLUSH 10/16/17 21:00 (NS Flush) 2 ml UNSCH PRN IV FLUSH 10/16/17 18:30 (Mylicon Chew) 80 mg QID PRN PO 10/16/17 18:30 (Percocet 5-325 Mg) 1 tab Q4H PRN PO 10/16/17 18:30 10/19/17 04:20 (Percocet 5-325 Mg) 2 tab Q4H PRN PO 10/16/17 18:30 10/19/17 00:24 (Motrin) 600 mg Q6H PRN PO 10/17/17 11:45 10/19/17 04:20 (Benadryl) 50 mg Q6H PRN PO 10/17/17 23:00 10/18/17 22:37 (PROzac) 20 mg DAILY PO 10/18/17 09:00 (Synthroid) 112 mcg DAILY@0600 PO 10/18/17 08:00 (Synthroid) 25 mcg DAILY@0600 PO 10/18/17 08:00 (Colace) 100 mg Q12H PRN PO 10/18/17 17:15 10/18/17 20:12 Assessment/Plan Problem List: (1) 40 weeks gestation of ICD Codes: Z3A.40 - 40 weeks gestation of (2) Arrest of descent, delivered, current hospitalization ICD 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
--- NOTE | 2017-10-19 05:24 | HHI.DCPOC ---
Discharge Care Plan Diagnosis: (1) Delivered by section Report Symptoms to Your Doctor -Temperature above 100.5 degrees -Redness, of incision or excessive or foul smelling drainage -Unusual pain or calf pain -Increased vaginal bleeding -Painful or difficulty urinating -Feelings of extreme sadness or anxiety after 2 weeks Goals to Promote Your Health * To prevent worsening of your condition and complications * To maintain your health at the optimal level Directions to Meet Your Goals Take your medications as prescribed Follow your dietary instruction Follow activity as directed Ensure plenty of rest for recovery Drink fluids for hydration Keep your appointments as scheduled Take your immunizations and boosters as scheduled If your symptoms worsen call your PCP, if no PCP go to Urgent Care Center or Emergency Room Smoking is Dangerous to Your Health. Avoid second hand smoke Call the 24-hour crisis hotline for domestic abuse at Rudy Haney MD Oct 19, 2017 05:24
[2017-10-19] MEDS ORDERED: OXYC1TAB63 PO (05:45)
--- NOTE | 2017-10-19 05:47 | HHI.DS ---
Admission Date Oct 16, 2017 at 10:19 Discharge Date: Oct 19, 2017 Admitting Diagnosis Diagnosis: (1) 40 weeks gestation of Diagnosis: Principal ICD Codes: Z3A.40 - 40 weeks gestation of Delivery Date: Oct 16, 2017 : Primary Reason: arrest of descent : Male Brief History 37 yo comes in for pitocin induction at 40 weeks. Previous at 36 weeks and 6# 10 oz. She has EFW 8.5 # Hospital Course patient was induced and pushed for 1 hour when the baby arrested in it's descent. Cs performed Pt Condition on Discharge: Good Discharge Disposition: Discharge Home Discharge Instructions Diet Instructions: As Tolerated, No Restrictions Activities You Can Perform: Pelvic Rest Activities to Avoid: Driving for 24 hrs Follow up Referrals: DIE DESIGNER - 2 Weeks @ [facility] with Rudy Haney MD New Medications: Oxycodone HCl/Acetaminophen (Oxycodone-Acetaminophen 5-325) 5 Mg-325 Mg Tablet 1 TAB PO Q4H PRN for PAIN SCALE 3 TO 5, #30 TAB Continued Medications: Fluoxetine (Fluoxetine) 20 Mg Tab 20 MG PO DAILY, #90 TAB 2 Refills Levothyroxine (Levothyroxine) 137 Mcg Tab 137 MCG PO DAILY for Thyroid, #30 TAB 0 Refills Rudy Haney MD Oct 19, 2017 05:47
[2017-10-19] MEDS: LEVOTHYROXINE SODIUM 25 MCG TAB PO SCH (06:08)
[2017-10-19] MEDS: LEVOTHYROXINE SODIUM 112 MCG TAB PO SCH (06:08)
[2017-10-19 08:00] VITALS: BP 104/60; PULSE 78; TEMP 97.8; O2SAT 97
[2017-10-19] MEDS: FLUoxetine HCL 20 MG CAP PO SCH (09:54)
[2017-10-19] MEDS: SODIUM CHLORIDE 0.9% FLUSH 10 ML FLUSH IV FLUSH SCH (09:54)
[2017-10-19] MEDS: DOCUSATE SODIUM 100 MG CAP PO PRN (10:13)
== END 2017-10-19 15:08 | disposition home or self-care (01) | DRG 766 ==
LOC: H2EB 10:19 → H1EA 19:54
PROVIDERS: ADMIT Obstetrics & Gynecology; ATTEND Obstetrics & Gynecology
PROC: 10D00Z1 Extraction of Products of Conception, Low, Open Approach (ICD-10-PCS; principal; 2017-10-16)
PROC: 3E033VJ Introduction of Other Hormone into Peripheral Vein, Percutaneous Approach (ICD-10-PCS; 2017-10-16)
PROC: 00HU33Z Insertion of Infusion Device into Spinal Canal, Percutaneous Approach (ICD-10-PCS; 2017-10-16)
PROC: 3E0R3BZ Introduction of Anesthetic Agent into Spinal Canal, Percutaneous Approach (ICD-10-PCS; 2017-10-16)
DX: O48.0 Post-term pregnancy (principal); F32.9 Major depressive disorder, single episode, unspecified; F41.9 Anxiety disorder, unspecified; J45.909 Unspecified asthma, uncomplicated; O99.344 Other mental disorders complicating childbirth; Z37.0 Single live birth; Z3A.40 40 weeks gestation of pregnancy; O99.52 Diseases of the respiratory system complicating childbirth; O62.1 Secondary uterine inertia
CPT/HCPCS: 80307; 81001; 85025; J0131; J0690; J1200; J1885; J2250; J2274; J2405; J2590; J3010; J7120; Q0163